=== PATIENT | male | born 1960 | race Caucasian/White ===

== ENCOUNTER 2022-04-01 11:27 | Emergency (ER) | payer SELFPAY ==
[2022-04-01 12:11] LABS: Absolute Lymphocytes (CBC) 0.9 K/uL (0.7-4.9); Hematocrit 35.8 % (39.6-49.0); Lymphocytes % 6.5 % (15.3-44.8); MCV 85.5 fL (80-100); MPV 7.4 fL (7.6-11.3); RBC Red Blood Cell Count 4.19 M/uL (4.33-5.43)
[2022-04-01 12:14] LABS: Protime INR 1.08
[2022-04-01 12:34] LABS: Albumin 3.2 g/dL (3.4-5.0); Bilirubin Direct 0.2 mg/dL (0-0.2); Bilirubin Total 0.8 mg/dL (0.2-1.0); Potassium 4.2 mmol/L (3.5-5.1); Protein, Total 7.2 g/dL (6.4-8.2)
[2022-04-01 12:36] LABS: Troponin High Sensitivity 400.1 pg/mL (<58.9)
--- NOTE | 2022-04-01 12:37 | RAD REPORT ---
EXAM DESCRIPTION: RAD - Chest Single View - 04/01/2022 12:25 pm CLINICAL HISTORY: CHEST PAIN COMPARISON: No comparisons FINDINGS: Lines: None. Lungs: No evidence of edema or pneumonia. Pleural: No significant pleural effusions or pneumothorax. Cardiac: The heart size is within normal limits. Mediastinum: Within normal limits. Bones: No acute fractures. Other: None IMPRESSION: No acute cardiopulmonary disease.
[2022-04-01] MEDS ORDERED: NA CHLORIDE 0.9% 1,000 ML ONE ×2 (13:11→16:55)
[2022-04-01] MEDS ORDERED: MORPHINE 4 MG/ML SYR ONE (13:11)
[2022-04-01] MEDS ORDERED: ONDANSETRON 4 MG/2 ML VIAL ONE (13:11)
--- NOTE | 2022-04-01 13:34 | RAD REPORT ---
EXAM DESCRIPTION: CT - Head C Spine Cap Monserrat De Luna - 04/01/2022 1:13 pm CLINICAL HISTORY: Trauma, head and neck injury. Chest, abdomen and pelvis pain. fall from roof 5 days ago COMPARISON: No comparisons TECHNIQUE: CT head without contrast. CT cervical spine without contrast with coronal and sagittal reformatted images. CT chest, abdomen and pelvis with coronal and sagittal reformatted images of the spine. All CT scans are performed using dose optimization technique as appropriate and may include automated exposure control or mA/KV adjustment according to patient size. FINDINGS: CT HEAD WITHOUT CONTRAST: No intracranial hemorrhage, hydrocephalus or extra-axial fluid collection. No acute large vascular te rritory infarct. The paranasal sinuses and mastoids are clear. The calvarium is intact. CT CERVICAL SPINE WITHOUT CONTRAST: No fracture or subluxation. Multilevel cervical spondylosis. The prevertebral soft tissues are normal in thickness. CT CHEST, ABDOMEN, PELVIS: Thorax: Chest Wall: No abnormal mass Lungs: Probable atelectasis as a result of the effusions. 12 mm noncalcified cavitary nodule of the r ight upper lobe which is indeterminate. Pleura: Small bilateral pleural effusions. Yuridia/Mediastinum: No lymphadenopathy. Aorta/Pulmonary Arteries: Unremarkable Heart: Normal size. Abdomen/Pelvis: Liver: Low-density liver lesions and have overall benign imaging features. Biliary: No biliary ductal dilatation. Stomach: No significant focal abnormality. Duodenum: No significant focal abnormality. Pancreas: No significant abnormality. Spleen: No significant abnormality. Adrenal: No suspicious lesions. Kidney/ureter: No hydronephrosis. No renal calculi. Retroperitoneum: No retroperitoneal adenopathy. Vascular: No aneurysm. Bowel: No significant focal abnormality. Peritoneum: No ascites or free air. Bladder: Grossly unremarkable. Reproductive: No adnexal masses. Bones: T2 through T4 acute fractures which are consistent with flexion distraction injuries involving all 3 columns. . Bilateral first rib fractures. Nondisplaced left second and third rib fractures. Th ere are fractures involving the transverse process ease T2 T3, T4, and T5. Spinous process fracture i s also present. Other remote appearing compression fractures including at T12 and L3. Displaced manub rial fracture Other: n/a IMPRESSION: 1. Flexion distraction fractures involving all 3 columns of T2 through T4. No significan t bony retropulsion. Fractures at these levels also involved the transverse processes and ribs. Displ aced manubrial fracture with small retromanubrial hematoma but no evidence of traumatic aortic injury . 2. No acute intracranial abnormality. 3. No acute fracture or traumatic malalignment cervical spine. 4. Small bilateral pleural effusions and likely underlying atelectasis. 5. Small cavitary lesion in the right upper lobe. Neoplasm not excluded. Consider PET-CT for further evaluation.
--- NOTE | 2022-04-01 13:59 | ER ---
Nurse's Notes [facility] Name: Wilfredo Tyler Age: 61 yrs Sex: Male : 1960 Arrival Date: 04/01/2022 Time: 11:34 Bed 12 Private MD: Diagnosis: Fall from, out of or through roof, initial encounter;Fracture of thoracic vertebra;Fracture of lumbar vertebra-L3;Multiple fractures of ribs;Sternal manubrial dissociation, initial encounter for closed fracture;Pleural effusion in other conditions classified elsewhere Presentation: 04/01 12:11 Chief complaint: Patient states: Fell approximately 15-20 feet off of rooftop 3 days ss ago while taking down [place] lights. Pt c/o pain L side of chest/ neck. Care prior to arrival: None. Mechanism of Injury: Fall 15- 20 feet. Trauma event details: Injury occurred in the [facility], Injury occurred: at home. Injury occurred: March 29, 2022. 12:11 Acuity: AL 2 ss 12:11 Method Of Arrival: EMS: [facility] ss 12:11 Coronavirus screen: Client denies travel out of the [place] in the last 14 days. Ebola ss Screen: Patient denies exposure to infectious person. Patient denies travel to an Ebola-affected area in the 21 days before illness onset. Initial Sepsis Screen: Does the patient meet any 2 criteria? No. Patient's initial sepsis screen is negative. Does the patient have a suspected source of infection? No. Patient's initial sepsis screen is negative. Risk Assessment: Do you want to hurt yourself or someone else? Patient reports no desire to harm self or others. Onset of symptoms was March 29, 2022. Trauma Activation: Not Applicable Physician: ED Physician; Name: ; Notified At: ; Arrived At: Physician: General Surgeon; Name: ; Notified At: ; Arrived At: Physician: Radiology; Name: ; Notified At: ; Arrived At: Physician: Respiratory; Name: ; Notified At: ; Arrived At: Physician: Lab; Name: ; Notified At: ; Arrived At: Historical: - Allergies: 12:18 No Known Allergies; ss - Immunization history:: Client reports having NOT received the Covid vaccine. - Social history:: Smoking status: Patient reports the use of cigarette tobacco products, smokes one pack cigarettes per day. Screenin:34 Abuse screen: Denies threats or abuse. Denies injuries from another. Tuberculosis ss screening: No symptoms or risk factors identified. 14:42 Nutritional screening: No deficits noted. ss Primary Survey: 11:34 NO uncontrolled hemorrhage observed. A: The client is awake and alert. The airway is ss patent. Breathing/Chest: Spontaneous respiratory effort, equal unlabored respirations, breath sounds clear bilaterally, regular pattern, symmetrical chest rise and fall. Respiratory effort: spontaneous, unlabored, Breath sounds: clear, Respiratory pattern: regular, Chest inspection: symmetrical rise and fall of the chest. Circulation: No external hemorrhage present. Regular and strong central pulse, skin warm/dry/normal color. Disability Pupils are equal, round, reactive to light and accommodation. Client is alert. Exposure/Environment: All clothing and personal items were removed. Forensic evidence collection is not deemed to be indicated at this time. Items placed in patient belonging bag. There is no evidence of uncontrolled external bleeding. No obvious injuries are noted at this time. Assessment: 11:34 Reassessment: C collar applied upon arrival. ss 11:34 General: Appears uncomfortable, Behavior is calm, cooperative. Pain:. Neuro: Level of ss Consciousness is awake, alert, obeys commands, Oriented to person, place, time, situation, Workers Compensation Defense Attorney are equal bilaterally Moves all extremities. Full function Speech is normal, Facial symmetry appears normal. Cardiovascular: Capillary refill < 3 seconds is brisk in bilateral fingers. Respiratory: Airway is patent Respiratory effort is even, unlabored, Respiratory pattern is regular, symmetrical. GI: Abdomen is non-distended. : No signs and/or symptoms were reported regarding the genitourinary system. EENT: Nares are clear Oral mucosa is moist. Derm: Skin is pink, warm \T\ dry. normal. Musculoskeletal: Circulation, motion, and sensation intact. Range of motion:. 12:30 Reassessment: Patient appears in no apparent distress at this time. Patient and/or ss family updated on plan of care and expected duration. Pain level reassessed. Patient is alert, oriented x 3, equal unlabored respirations, skin warm/dry/pink. 13:30 Reassessment: No changes from previously documented assessment. Respiratory: ss Respiratory effort is even, unlabored. 14:42 Reassessment: No changes from previously documented assessment. Patient is alert, ss oriented x 3, equal unlabored respirations, skin warm/dry/pink. 15:56 Reassessment: called report to CHRISTIN Shell at [place] [facility]. Vital Signs: 11:36 BP 170 / 112 LA Supine (/reg); Pulse 105; Resp 16; Temp 99(O); Pulse Ox 97% on R/A; zm Weight 70.31 kg; Height 5 ft. 7 in. (170.18 cm); 16:09 BP 167 / 119 LA Supine (/reg); Pulse 99; Resp 19; Pulse Ox 96% on R/A; zm 11:36 Body Mass Index 24.28 (70.31 kg, 170.18 cm) zm [place] Coma Score: 11:34 Eye Response: spontaneous(4). Verbal Response: oriented(5). Motor Response: obeys ss commands(6). Total: 15. Trauma Score (Adult): 11:34 Eye Response: spontaneous(1); Verbal Response: oriented(1); Motor Response: obeys ss commands(2); Systolic BP: > 89 mm Hg(4); Respiratory Rate: 10 to 29 per min(4); [place] Score: 15; Trauma Score: 12 ED Course: 11:34 Patient arrived in ED. bc6 11:34 Patient has correct armband on for positive identification. ss 11:34 Patient maintains SpO2 saturation greater than 95% on room air. ss 11:35 Aquiles Weiner PA is PHCP. cp 11:35 Jesusita Byrd MD is Attending Physician. cp 12:06 Nita Gutierrez, CHRISTIN is Primary Nurse. ss 12:14 Triage completed. ss 12:18 Arm band placed on right wrist. ss 12:27 XRAY Chest (1 view) In Process Unspecified. EDMS 13:15 CT Traumagram (Head C Spine CAP W Con) In Process Unspecified. EDMS 16:42 SARS RAPID Sent. bc6 16:59 No provider procedures requiring assistance completed. Patient transferred, IV remains ss in place. 17:20 Thermoregulation: warm blanket given to patient. ss Administered Medications: 13:05 Drug: Zofran (Ondansetron) 4 mg Route: IVP; Site: right antecubital; ss 13:45 Follow up: Response: No adverse reaction ss 13:07 Drug: morphine 4 mg Route: IVP; Infused Over: 4 mins; Site: right antecubital; ss 13:45 Follow up: Response: No adverse reaction; Pain is decreased ss 13:10 Drug: NS 0.9% 1000 ml Route: IV; Rate: 1 bolus; Site: right antecubital; ss 15:54 Follow up: IV Status: Completed infusion; IV Intake: 1000ml ss 16:52 Not Given (Duplicate Order): Dilaudid (HYDROmorphone) 1 mg IVP once ss 16:59 Drug: Dilaudid (HYDROmorphone) 1 mg Route: IVP; Site: right antecubital; ss 17:01 Follow up: Response: No adverse reaction; Pain is decreased ss 16:59 Drug: NS 0.9% 1000 ml Route: IV; Rate: 100 ml/hr; Site: right antecubital; ss 17:01 Follow up: IV Status: Infusion continued upon transfer ss Intake: 15:54 IV: 1000ml; Total: 1000ml. Outcome: 13:58 ER care complete, transfer ordered by MD. 16:59 Transferred by ground EMS to [facility]. ss 16:59 Condition: good 16:59 Instructed on the need for transfer, Demonstrated understanding of instructions. 17:00 Patient left the ED. ss 17:00 Patient's length of stay in the Emergency Department was greater than 2 hours. transferPatient's length of stay extended due to Signatures: Dispatcher [employer] EDMS Nita Gutierrez RN RN ss Aquiles Weiner PA PA Mary Condon Cecille Mckinney 6 Corrections: (The following items were deleted from the chart) 11:40 11:36 Pulse 105bpm; Resp 16bpm; Pulse Ox 97% RA; Temp 99F Oral; 70.31 kg; Height 5 ft. zm 7 in.; BMI: 24.2; zm
--- NOTE | 2022-04-01 13:59 | EDPHYS ---
Physician Documentation [facility] Name: Wilfredo Tyler Age: 61 yrs Sex: Male : 1960 Arrival Date: 04/01/2022 Time: 11:34 Bed 12 Private MD: ED Physician Jesusita Byrd HPI: 04/01 11:50 This 61 yrs old Male presents to ER via EMS with complaints of Fall Injury. cp 11:50 Details of fall: The patient fell from a height, off a roof, approximately 20 feet, and cp struck a grass-covered surface. Onset: The symptoms/episode began/occurred 3 day(s) ago. Associated injuries: The patient sustained neck injury, pain, injury to the chest, specifically the left side of chest, pain with breathing, pain with movement. Severity of symptoms: in the emergency department the symptoms are unchanged, despite home interventions. Patient reports he lives at home alone and while taking down [place] lights, lost his balance off roof and fell to ground. Patient reports loss of consciousness for unknown duration. Historical: - Allergies: 12:18 No Known Allergies; ss - Immunization history:: Client reports having NOT received the Covid vaccine. - Social history:: Smoking status: Patient reports the use of cigarette tobacco products, smokes one pack cigarettes per day. ROS: 11:55 Constitutional: Negative for body aches, chills, fever, poor PO intake. cp 11:55 Cardiovascular: Positive for chest pain, of the left side of chest, Negative for edema, cp palpitations. 11:55 Respiratory: Negative for cough, shortness of breath, wheezing. 11:55 Abdomen/GI: Negative for abdominal pain, vomiting, diarrhea, constipation. 11:55 Eyes: Negative for injury, pain, redness, and discharge. cp 11:55 Back: Positive for pain at rest, pain with movement. cp 11:55 Neuro: Positive for loss of consciousness, Negative for altered mental status, headache. 11:55 All other systems are negative. Exam: 12:00 Constitutional: The patient appears in no acute distress, alert, awake, cp non-diaphoretic, non-toxic, well developed, well nourished, uncomfortable. 12:00 Head/Face: Normocephalic, atraumatic. cp 12:00 Eyes: Periorbital structures: appear normal, Pupils: equal, round, and reactive to light and accomodation, Extraocular movements: intact throughout, Conjunctiva: normal, no exudate, no injection, Sclera: no appreciated abnormality, Lids and lashes: appear normal, bilaterally. 12:00 ENT: External ear(s): are unremarkable, Ear canal(s): are normal, clear, TM's: dullness, bilaterally, Nose: is normal, Mouth: Lips: dry, Oral mucosa: moist, Posterior pharynx: Airway: no evidence of obstruction, patent. 12:00 Neck: C-spine: vertebral tenderness, that is moderate, appreciated at C5 and C6, crepitus, is not appreciated, ROM/movement: pain, that is moderate, with any movement, limited range of motion, is not appreciated, nuchal rigidity, is not appreciated. 12:00 Chest/axilla: Inspection: normal, Palpation: crepitus, is not appreciated, tenderness, that is moderate, of the left clavicle, anterior aspect of left upper chest, left lateral anterior chest and left lateral posterior chest. 12:00 Cardiovascular: Rate: tachycardic, Rhythm: regular, Edema: is not appreciated, JVD: is not appreciated. 12:00 Respiratory: the patient does not display signs of respiratory distress, Respirations: normal, no use of accessory muscles, no retractions, labored breathing, is not present, Breath sounds: are clear throughout, no decreased breath sounds, no stridor, no wheezing. 12:00 Abdomen/GI: Inspection: abdomen appears normal, Bowel sounds: active, all quadrants, Palpation: abdomen is soft and non-tender, in all quadrants. 12:00 Back: pain, that is moderate, of the thoracic area and lumbar area, ROM is painful, with all movement. 12:00 Musculoskeletal/extremity: Exam is negative for decreased range of motion, deformity, injury. 12:00 Neuro: Orientation: to person, place \T\ time. Mentation: is normal, Motor: moves all fours, strength is normal, Sensation: no obvious gross deficits. 12:37 ECG was reviewed by the Attending Physician. cp Vital Signs: 11:36 BP 170 / 112 LA Supine (/reg); Pulse 105; Resp 16; Temp 99(O); Pulse Ox 97% on R/A; zm Weight 70.31 kg; Height 5 ft. 7 in. (170.18 cm); 16:09 BP 167 / 119 LA Supine (/reg); Pulse 99; Resp 19; Pulse Ox 96% on R/A; zm 11:36 Body Mass Index 24.28 (70.31 kg, 170.18 cm) zm [place] Coma Score: 11:34 Eye Response: spontaneous(4). Verbal Response: oriented(5). Motor Response: obeys ss commands(6). Total: 15. Trauma Score (Adult): 11:34 Eye Response: spontaneous(1); Verbal Response: oriented(1); Motor Response: obeys ss commands(2); Systolic BP: > 89 mm Hg(4); Respiratory Rate: 10 to 29 per min(4); [place] Score: 15; Trauma Score: 12 MDM: 11:41 Patient medically screened. 12:00 Differential diagnosis: closed head injury, fracture, multiple trauma, intracranial cp bleed. 13:55 Data reviewed: vital signs, nurses notes, lab test result(s), EKG, radiologic studies, CT scan, plain films. 13:55 Test interpretation: by ED physician or midlevel provider: ECG, plain radiologic studies. 15:35 Physician consultation: was contacted at 15:30, regarding regarding transfer, to [facility]. patient's condition, accepting physician will be DR Julian. 15:35 Response to treatment: the patient's symptoms have markedly improved after treatment. 04/01 11:41 Order name: Basic Metabolic Panel; Complete Time: 12:38 04/01 12:38 Interpretation: Normal except: NA 133; GLUC 110; GFR 89. 04/01 11:41 Order name: CBC with Diff; Complete Time: 12:38 04/01 12:39 Interpretation: Normal except: WBC 13.90; RBC 4.19; HGB 12.0; HCT 35.8; MPV 7.4; ETHAN% cp 83.2; LYM% 6.5; NEUT A 11.6; MNA 1.4. 04/01 11:41 Order name: LFT's; Complete Time: 12:38 04/01 11:41 Order name: Magnesium; Complete Time: 12:38 04/01 11:41 Order name: PT-INR; Complete Time: 12:38 04/01 11:41 Order name: Troponin HS; Complete Time: 12:38 cp 04/01 12:39 Interpretation: Abnormal: Troponin HS 400.1. cp 04/01 11:41 Order name: XRAY Chest (1 view); Complete Time: 12:38 cp 04/01 11:41 Order name: CT Traumagram (Head C Spine CAP W Con); Complete Time: 13:48 cp 04/01 13:56 Order name: SARS RAPID ss 04/01 11:41 Order name: EKG; Complete Time: 12:05 cp 04/01 11:41 Order name: Cardiac monitoring; Complete Time: 11:54 cp 04/01 11:41 Order name: EKG - Nurse/Tech; Complete Time: 12:34 cp 04/01 11:41 Order name: IV Saline Lock; Complete Time: 11:43 cp 04/01 11:41 Order name: Labs collected and sent; Complete Time: 11:43 cp 04/01 11:41 Order name: O2 Per Protocol; Complete Time: 11:43 cp 04/01 11:41 Order name: O2 Sat Monitoring; Complete Time: 11:43 cp EC:37 Rate is 106 beats/min. Rhythm is regular. ME interval is normal. QRS interval is cp normal. QT interval is normal. T waves are Inverted in leads aVL, aVR, V2. Interpreted by me. Reviewed by me. Administered Medications: 13:05 Drug: Zofran (Ondansetron) 4 mg Route: IVP; Site: right antecubital; ss 13:45 Follow up: Response: No adverse reaction ss 13:07 Drug: morphine 4 mg Route: IVP; Infused Over: 4 mins; Site: right antecubital; ss 13:45 Follow up: Response: No adverse reaction; Pain is decreased ss 13:10 Drug: NS 0.9% 1000 ml Route: IV; Rate: 1 bolus; Site: right antecubital; ss 15:54 Follow up: IV Status: Completed infusion; IV Intake: 1000ml ss 16:52 Not Given (Duplicate Order): Dilaudid (HYDROmorphone) 1 mg IVP once ss 16:59 Drug: Dilaudid (HYDROmorphone) 1 mg Route: IVP; Site: right antecubital; ss 17:01 Follow up: Response: No adverse reaction; Pain is decreased ss 16:59 Drug: NS 0.9% 1000 ml Route: IV; Rate: 100 ml/hr; Site: right antecubital; ss 17:01 Follow up: IV Status: Infusion continued upon transfer ss Disposition Summary: 04/01/22 13:58 Transfer Ordered Transfer Location: [facility] cp Reason: Higher level of care cp Condition: Stable cp Problem: new cp Symptoms: have improved cp Accepting Physician: DR Edwige Julian(04/01/22 17:00) ss Diagnosis - Fall from, out of or through roof, initial encounter cp - Fracture of thoracic vertebra cp - Multiple fractures of ribs cp - Sternal manubrial dissociation, initial encounter for closed fracture cp - Fracture of lumbar vertebra - L3(04/01/22 16:12) cp - Pleural effusion in other conditions classified elsewhere cp Forms: - Medication Reconciliation Form cp - SBAR form cp Addendum: 04/05/2022 18:23 STAFF ATTESTATION: The patient's history, exam findings, diagnostics and a summary of s d2 any interventions or procedures was reviewed in detail with the REGINALDO. I personally interviewed and examined the patient, and I have reviewed and agree with the HPI and exam. My personal exam shows a nontoxic appearing male resting comfortably in NAD. No respiratory distress or hypoxia. I confirm the diagnosis as documented by the REGINALDO. I have reviewed and agree with the care plan articulated in the disposition section. Jesusita Byrd MD. Signatures: Dispatcher [employer] EDMS Nita Gutierrez RN RN ss Aquiles Weiner, JONES PA Jesusita Flynn MD MD sd2 Corrections: (The following items were deleted from the chart) 04/01 16:10 13:58 Doctor cp cp 16:12 16:10 DR Edwige Julian cp cp 16:12 16:10 Fracture of lumbar vertebra cp cp 17:00 16:12 DR Edwige Julian cp ss
[2022-04-01] MEDS ORDERED: HYDROMORPHONE HCL 1 MG/ML INJ ONE (16:55)
[2022-04-01 17:07] LABS: SARS-CoV-2 Antigen Rapid Res Negative (Negative)
[2022-04-01 17:13] VITALS: TEMP 99
[2022-04-01 17:14] VITALS: BP 167/119; O2SAT 96
--- NOTE | 2022-04-02 14:52 | EKG ---
Test Date: 2022-04-01 Test Time: 12:31:10 Lathe Hand: SARAH MEASUREMENT RESULTS: Intervals: Rate: 106 PA: 192 QRSD: 78 QT: 324 QTc: 430 [place]: P: PA: 192 QRS: 50 T: 84 INTERPRETIVE STATEMENTS: Sinus tachycardia Otherwise normal ECG No previous ECG available for comparison Electronically Signed On 04-02-22 14:50:43 STEEPING PRESS TENDER by Manuel Pelayo
== END 2022-04-01 17:00 | disposition short-term general hospital (02) ==
LOC: ER 11:27
DX: S22.42XA Multiple fractures of ribs, left side, initial encounter for closed fracture (principal); S22.089A Unspecified fracture of T11-T12 vertebra, initial encounter for closed fracture; S32.039A Unspecified fracture of third lumbar vertebra, initial encounter for closed fracture; S22.23XA Sternal manubrial dissociation, initial encounter for closed fracture; J91.8 Pleural effusion in other conditions classified elsewhere; W13.2XXA Fall from, out of or through roof, initial encounter; F17.210 Nicotine dependence, cigarettes, uncomplicated; Z20.822 Contact with and (suspected) exposure to COVID-19
CPT/HCPCS: 36415; 70450; 71045; 71260; 72125; 74177; 80048; 80076; 83735; 84484; 85025; 85610; 87811; 93005; 96361; 96374; 96375; 99285; J1170; J2405; J7030